=== PATIENT | female | born 1940 | race African-American/Black ===

== ENCOUNTER 2023-11-29 15:06 | Inpatient (IN) | payer OTHER, MEDICAID ==
[~2023-11-29] VITALS: Ht 170.2 cm; Wt 105.6 kg
[2023-11-29 16:41] LABS: Basophils # (auto) 0 10 ^3/uL (0-0.2); Basophils % (auto) 0.1 % (0.0-2.0); Eosinophils # (auto) 0 10 ^3/uL (0-0.8); Hematocrit 49.6 % (36.0-46.0); Hemoglobin 16.5 g/dL (12.2-16.2); Lymphocytes # (auto) 1.2 10 ^3/uL (0.4-5.4); Lymphocytes % (auto) 7.6 % (10.0-50.0); Mean Corpuscular Hemoglobin 27.7 pg (28.0-32.0); Mean Corpuscular Hgb Conc. 33.3 g/dL (32.0-36.0); Mean Corpuscular Volume 83.2 fL (80.0-100.0); Monocytes # (auto) 0.9 10 ^3/uL (0-1.3); Monocytes % (auto) 5.6 % (0.0-12.0); Neutrophils # (auto) 14.1 10 ^3/uL (1.6-8.6); Neutrophils % (auto) 86.7 % (37.0-80.0); Nucleated Red Blood Cells % 0.4 %; Red Blood Cells 5.97 10^6/uL (4.0-5.20); Red Cell Distribution Width 14.4 % (11.8-14.3); White Blood Cell 16.3 10^3/uL (4.4-10.8)
[2023-11-29 17:37] LABS: Alanine Aminotransferase 45 U/L (7-40); Albumin 4.3 g/dL (3.2-4.8); Alkaline Phosphatase 101 U/L (46-116); Anion Gap 16 (5-15); Aspartate Aminotransferase 70 U/L (13-40); BUN/Creatinine Ratio 17.9 (10.0-20.0); Blood Urea Nitrogen 69 mg/dL (9-23); Calcium 10.1 mg/dL (8.7-10.4); Carbon Dioxide 19 mmol/L (20-30); Chloride 98 mmol/L (98-107); Glucose 171 mg/dL (74-106); Lipase 35 U/L (12-53); Potassium 4.5 mmol/L (3.5-5.1); Sodium 133 mmol/L (136-145)
[2023-11-29 17:38] LABS: Bilirubin, Total 0.6 mg/dL (0.2-1.0); Total Protein 7.3 g/dL (5.7-8.2)
[2023-11-29] MEDS: ALBUMIN 25% 100 ML IV ONE (19:58)
[2023-11-29] MEDS: SODIUM CHLORIDE 0.9% 1,000 ML IV ONE (19:58)
[2023-11-29] MEDS: cefTRIAXone 1GM/50ML D5W 50 ML IV ONE (20:48)
[2023-11-29] MEDS ORDERED: DOCUSATE SOD 100 MG CAP PO PRN (22:45)
[2023-11-29] MEDS ORDERED: IBUPROFEN 400 MG TAB PO PRN (22:45)
[2023-11-29] MEDS ORDERED: HYDROcodone-ACET 5/325MG TAB PO PRN (22:45)
[2023-11-29] MEDS: ASPirin 81 mg TAB PO ONE (22:49)
[2023-11-29] MEDS: SODIUM CHLORIDE 0.9% 1,000 ML IV SCH (23:11)
[2023-11-29] MEDS ORDERED: NITROGLYCERIN 0.4 MG SL TAB SL PRN (23:45)
[2023-11-29] MEDS ORDERED: MORPHINE SULFATE INJ 2 MG/ml SYRG IV PRN (23:45)
[2023-11-30] MEDS: ACCU-CHEK COMFORT CURVE STRIP VI SCH (00:39)
[2023-11-30] MEDS: InsuLIN REG 1unit/0.01ml Soln (100units/ml) SC SCH (00:56)
[2023-11-30 06:11] LABS: Basophils # (auto) 0 10 ^3/uL (0-0.2); Basophils % (auto) 0.3 % (0.0-2.0); Eosinophils # (auto) 0 10 ^3/uL (0-0.8); Eosinophils % (auto) 0.2 % (0.0-7.0); Hematocrit 42.5 % (36.0-46.0); Hemoglobin 14.2 g/dL (12.2-16.2); Lymphocytes # (auto) 1.3 10 ^3/uL (0.4-5.4); Lymphocytes % (auto) 11.3 % (10.0-50.0); Mean Corpuscular Hemoglobin 27.4 pg (28.0-32.0); Mean Corpuscular Hgb Conc. 33.4 g/dL (32.0-36.0); Monocytes # (auto) 0.9 10 ^3/uL (0-1.3); Monocytes % (auto) 7.5 % (0.0-12.0); Neutrophils # (auto) 9.4 10 ^3/uL (1.6-8.6); Neutrophils % (auto) 80.7 % (37.0-80.0); Nucleated Red Blood Cells % 0.2 %; Red Blood Cells 5.18 10^6/uL (4.0-5.20); Red Cell Distribution Width 14.3 % (11.8-14.3); White Blood Cell 11.7 10^3/uL (4.4-10.8)
[2023-11-30 06:16] LABS: Alanine Aminotransferase 42 U/L (7-40); Alkaline Phosphatase 83 U/L (46-116); Anion Gap 9 (5-15); Aspartate Aminotransferase 75 U/L (13-40); BUN/Creatinine Ratio 28.9 (10.0-20.0); Calcium 9.7 mg/dL (8.7-10.4); Carbon Dioxide 27 mmol/L (20-30); Chloride 102 mmol/L (98-107); Glucose 90 mg/dL (74-106); Potassium 4.5 mmol/L (3.5-5.1); Sodium 138 mmol/L (136-145)
[2023-11-30 06:17] LABS: Albumin 4.1 g/dL (3.2-4.8); Bilirubin, Total 0.7 mg/dL (0.2-1.0); Total Protein 6.2 g/dL (5.7-8.2)
[2023-11-30 06:27] LABS: Blood Urea Nitrogen 86 mg/dL (9-23)
[2023-11-30 07:30] VITALS: PULSE 93; RESP 18; O2SAT 95
[2023-11-30 09:41] LABS: Urine Bacteria FEW /hpf (None Seen); Urine Blood Negative /uL (Negative); Urine Clarity Clear (Clear); Urine Color Light-Yellow (Yellow); Urine Hyaline Cast MOD /lpf (0 - 2); Urine Protein, UAD Negative (Negative); Urine Specific Gravity 1.012 (1.001-1.035); Urine Urobilinogen Normal (Negative); Urine WBC 1 /hpf (0 - 5)
[2023-11-30] MEDS: ASPirin 81 mg TAB PO SCH (10:32)
[2023-11-30] MEDS: FAMOTIDINE (10MG/ML) 2ML VL IV SCH (10:34)
[2023-11-30 19:56] VITALS: PULSE 106; RESP 14; O2SAT 97
[2023-11-30] MEDS: cefTRIAXone 1GM/50ML D5W 50 ML IV SCH (20:28)
[2023-12-01] MEDS: InsuLIN REG 1unit/0.01ml Soln (100units/ml) SC SCH ×2 (01:18→17:17)
[2023-12-01] MEDS ORDERED: InsuLIN REG 1unit/0.01ml Soln (100units/ml) SC SCH (04:00)
[2023-12-01 06:17] LABS: Basophils # (auto) 0 10 ^3/uL (0-0.2); Basophils % (auto) 0.5 % (0.0-2.0); Eosinophils # (auto) 0.1 10 ^3/uL (0-0.8); Eosinophils % (auto) 0.7 % (0.0-7.0); Hematocrit 43.6 % (36.0-46.0); Hemoglobin 14.6 g/dL (12.2-16.2); Lymphocytes # (auto) 1.1 10 ^3/uL (0.4-5.4); Lymphocytes % (auto) 10.1 % (10.0-50.0); Mean Corpuscular Hemoglobin 28.1 pg (28.0-32.0); Mean Corpuscular Hgb Conc. 33.6 g/dL (32.0-36.0); Mean Corpuscular Volume 83.6 fL (80.0-100.0); Monocytes # (auto) 1.2 10 ^3/uL (0-1.3); Monocytes % (auto) 11.6 % (0.0-12.0); Neutrophils # (auto) 8.1 10 ^3/uL (1.6-8.6); Neutrophils % (auto) 77.1 % (37.0-80.0); Nucleated Red Blood Cells % 0.1 %; Red Blood Cells 5.22 10^6/uL (4.0-5.20); Red Cell Distribution Width 14.2 % (11.8-14.3); White Blood Cell 10.5 10^3/uL (4.4-10.8)
[2023-12-01 06:37] LABS: Alanine Aminotransferase 46 U/L (7-40); Albumin 4.2 g/dL (3.2-4.8); Alkaline Phosphatase 86 U/L (46-116); Anion Gap 8 (5-15); Aspartate Aminotransferase 79 U/L (13-40); BUN/Creatinine Ratio 33.9 (10.0-20.0); Calcium 9.9 mg/dL (8.5-10.1); Carbon Dioxide 26 mmol/L (20-30); Chloride 108 mmol/L (98-107); Glucose 59 mg/dL (74-106); Potassium 4.2 mmol/L (3.5-5.1); Sodium 142 mmol/L (136-145)
[2023-12-01 06:38] LABS: Bilirubin, Total 0.4 mg/dL (0.2-1.0); Total Protein 6.6 g/dL (5.7-8.2)
[2023-12-01 06:40] LABS: Blood Urea Nitrogen 62 mg/dL (9-23)
[2023-12-01 07:30] VITALS: PULSE 91; RESP 16; O2SAT 99
[2023-12-01] MEDS: DEXTROSE (50%) 50ML SYRG IV PRN (08:35)
[2023-12-01] MEDS: SODIUM CHLORIDE 0.9% 1,000 ML IV ONE (15:00)
[2023-12-01] MEDS: ACCU-CHEK COMFORT CURVE STRIP VI SCH (17:08)
[2023-12-01 19:50] VITALS: PULSE 82; RESP 15; O2SAT 94
[2023-12-01 23:36] VITALS: BP 111/54; PULSE 89; RESP 18; TEMP 97.6; O2SAT 100
[2023-12-02] VITALS (8 sets, daily range): BP systolic 99–112; BP diastolic 51–60; PULSE 84–99; RESP 16–18; TEMP 97.6–98.6; O2SAT 96–100
[2023-12-02 05:54] LABS: Anion Gap 6 (5-15); Carbon Dioxide 26 mmol/L (20-30); Chloride 113 mmol/L (98-107); Potassium 4.5 mmol/L (3.5-5.1); Sodium 145 mmol/L (136-145)
[2023-12-02 05:55] LABS: Calcium 9.3 mg/dL (8.7-10.4)
[2023-12-02 06:00] LABS: BUN/Creatinine Ratio 24.2 (10.0-20.0); Glucose 182 mg/dL (74-106)
[2023-12-02 06:17] LABS: Blood Urea Nitrogen 31 mg/dL (9-23)
[2023-12-03] VITALS (7 sets, daily range): BP systolic 92–102; BP diastolic 50–60; PULSE 83–96; RESP 16–60; TEMP 97.7–98.5; O2SAT 94–100
[2023-12-03] MEDS ORDERED: VANCOMYCIN PER PHARMACY 0 MG IV SCH (09:30)
[2023-12-03 11:01] LABS: INR 1.08 (0.9-1.15); Partial Thromboplastin Time 23.5 SEC (24.5-34.5); Prothrombin Time 11.4 sec (9.3-11.8)
[2023-12-03] MEDS: LIDOCAINE 1% (LOCAL ANESTH.) PF 5ml SDV ID ONE (13:02)
[2023-12-03] MEDS: VANCOMYCIN 1GM/200ML 200 ML IV ONE (15:18)
[2023-12-03] MEDS: SODIUM CHLOR 0.9% PF (SALINE LOCK) 10ML VIAL/SYR IV SCH (20:53)
[2023-12-04 05:00] VITALS: BP 93/49; PULSE 104; RESP 16; TEMP 98.4; O2SAT 98
[2023-12-04 07:10] LABS: Basophils # (auto) 0 10 ^3/uL (0-0.2); Basophils % (auto) 0.3 % (0.0-2.0); Eosinophils # (auto) 0.3 10 ^3/uL (0-0.8); Eosinophils % (auto) 2.7 % (0.0-7.0); Hematocrit 32.9 % (36.0-46.0); Hemoglobin 10.9 g/dL (12.2-16.2); Lymphocytes # (auto) 1.7 10 ^3/uL (0.4-5.4); Lymphocytes % (auto) 18.3 % (10.0-50.0); Mean Corpuscular Hemoglobin 27.9 pg (28.0-32.0); Mean Corpuscular Hgb Conc. 33.1 g/dL (32.0-36.0); Mean Corpuscular Volume 84.2 fL (80.0-100.0); Monocytes # (auto) 0.8 10 ^3/uL (0-1.3); Monocytes % (auto) 8.7 % (0.0-12.0); Neutrophils # (auto) 6.7 10 ^3/uL (1.6-8.6); Red Blood Cells 3.91 10^6/uL (4.0-5.20); Red Cell Distribution Width 14.1 % (11.8-14.3); White Blood Cell 9.5 10^3/uL (4.4-10.8)
[2023-12-04 08:45] VITALS: BP 96/52; PULSE 112; RESP 16; TEMP 97.9; O2SAT 96
[2023-12-04 13:00] VITALS: BP 99/60; PULSE 102; RESP 16; TEMP 98.2; O2SAT 97
[2023-12-04] MEDS: POLYETHYLENE GLYCOL 17 GM PWDR PO ONE (14:23)
[2023-12-04 17:00] VITALS: BP 94/52; PULSE 111; RESP 16; TEMP 98.5; O2SAT 98
[2023-12-04] MEDS: VANCOMYCIN 750mg/150ml 150 ML IV SCH (17:35)
[2023-12-04 20:00] VITALS: BP 100/60; PULSE 102; RESP 16; RESP 18; TEMP 98.7
[2023-12-04 21:00] VITALS: BP 100/60; PULSE 102; RESP 16; TEMP 98.7; O2SAT 97
[2023-12-04] MEDS: LACTULOSE 20Gm/30ML SOLN PO SCH (21:09)
[2023-12-05] VITALS (9 sets, daily range): BP systolic 77–113; BP diastolic 42–82; PULSE 89–110; RESP 15–20; TEMP 97.7–99.1; O2SAT 93–100
[2023-12-05 07:22] LABS: Basophils # (auto) 0 10 ^3/uL (0-0.2); Basophils % (auto) 0.5 % (0.0-2.0); Eosinophils # (auto) 0.3 10 ^3/uL (0-0.8); Eosinophils % (auto) 3.2 % (0.0-7.0); Hematocrit 29.9 % (36.0-46.0); Hemoglobin 9.7 g/dL (12.2-16.2); Lymphocytes # (auto) 1.8 10 ^3/uL (0.4-5.4); Lymphocytes % (auto) 18.9 % (10.0-50.0); Mean Corpuscular Hemoglobin 27.1 pg (28.0-32.0); Mean Corpuscular Hgb Conc. 32.6 g/dL (32.0-36.0); Mean Corpuscular Volume 83.3 fL (80.0-100.0); Monocytes # (auto) 0.9 10 ^3/uL (0-1.3); Monocytes % (auto) 9.6 % (0.0-12.0); Neutrophils # (auto) 6.4 10 ^3/uL (1.6-8.6); Neutrophils % (auto) 67.8 % (37.0-80.0); Nucleated Red Blood Cells % 0.1 %; Red Blood Cells 3.59 10^6/uL (4.0-5.20); Red Cell Distribution Width 14.1 % (11.8-14.3); White Blood Cell 9.4 10^3/uL (4.4-10.8)
[2023-12-05 07:37] LABS: Anion Gap 8 (5-15); Carbon Dioxide 22 mmol/L (20-30); Chloride 109 mmol/L (98-107); Potassium 4.2 mmol/L (3.5-5.1); Sodium 139 mmol/L (136-145)
[2023-12-05 07:38] LABS: Calcium 8.8 mg/dL (8.7-10.4)
[2023-12-05 07:43] LABS: Glucose 178 mg/dL (74-106)
[2023-12-05 07:44] LABS: BUN/Creatinine Ratio 21.7 (10.0-20.0); Blood Urea Nitrogen 23 mg/dL (9-23)
[2023-12-05] MEDS: LACTULOSE 20Gm/30ML SOLN PO ONE (11:50)
[2023-12-05] MEDS: VANCOMYCIN 1GM/200ML 200 ML IV SCH (17:16)
[2023-12-06] VITALS (38 sets, daily range): BP systolic 68–116; BP diastolic 22–58; PULSE 95–140; RESP 12–29; TEMP 97.3–98.6; O2SAT 86–100
[2023-12-06 09:24] LABS: Hematocrit 21.9 % (36.0-46.0); Hemoglobin 7.1 g/dL (12.2-16.2); Mean Corpuscular Hemoglobin 27.1 pg (28.0-32.0); Mean Corpuscular Hgb Conc. 32.4 g/dL (32.0-36.0); Mean Corpuscular Volume 83.6 fL (80.0-100.0); Red Blood Cells 2.62 10^6/uL (4.0-5.20); Red Cell Distribution Width 14.2 % (11.8-14.3); White Blood Cell 22.7 10^3/uL (4.4-10.8)
[2023-12-06 09:30] LABS: Band Neutrophils % (manual) 0; Basophils % (manual) 0 (0.0-2.0); Blast Cells 0; Eosinophils % (manual) 0 (0-7); Metamyelocytes % 0; Myelocytes % 0; Promyelocytes % 0; Reactive Lymphocytes 0
[2023-12-06 09:43] LABS: Alanine Aminotransferase 55 U/L (7-40); Alkaline Phosphatase 52 U/L (46-116); Anion Gap 6 (5-15); Aspartate Aminotransferase 49 U/L (13-40); Bilirubin, Total 0.3 mg/dL (0.2-1.0); Blood Urea Nitrogen 30 mg/dL (9-23); Calcium 8.1 mg/dL (8.5-10.1); Carbon Dioxide 23 mmol/L (20-30); Chloride 112 mmol/L (98-107); Glucose 230 mg/dL (74-106); Sodium 141 mmol/L (136-145)
[2023-12-06 09:44] LABS: Total Protein 4.5 g/dL (5.7-8.2)
[2023-12-06 10:22] LABS: Hematocrit 27.4 % (36.0-46.0); Hemoglobin 8.3 g/dL (12.2-16.2)
[2023-12-06] MEDS: SODIUM CHLORIDE 0.9% 1,000 ML IV SCH (11:00)
[2023-12-06] MEDS: SODIUM CHLORIDE 0.9% 1,850 ML IV ONE (11:00)
[2023-12-06 12:16] LABS: Hematocrit 23.7 % (36.0-46.0); Hemoglobin 7.3 g/dL (12.2-16.2)
[2023-12-06 12:46] LABS: Lymphocytes % (manual) 6 (10.0-50.0); Monocytes % (manual) 6 (0-12); Platelet Estimate Adequate
[2023-12-06] MEDS: NOREPINEPHRINE 8 MG/250ML KIT 250 ML IV ONE (14:07)
[2023-12-06] MEDS: NOREPINEPHRINE 8 MG/250ML KIT 250 ML IV SCH (18:15)
[2023-12-06 21:12] LABS: Hemoglobin 7.9 g/dL (12.2-16.2)
[2023-12-06 21:14] LABS: Hematocrit 24.5 % (36.0-46.0)
[2023-12-06] MEDS: PHENYLEPHRINE IV 250 ML IV SCH (23:15)
[2023-12-06] MEDS: PHENYLEPHRINE IV 250 ML IV ONE (23:15)
[2023-12-07] VITALS (105 sets, daily range): BP systolic 83–267; BP diastolic 20–192; PULSE 60–141; RESP 12–31; TEMP 97–99.6; O2SAT 84–100
[2023-12-07 00:44] LABS: Hematocrit 20.2 % (36.0-46.0)
[2023-12-07 00:58] LABS: Hemoglobin 6.5 g/dL (12.2-16.2)
[2023-12-07 09:53] LABS: Hematocrit 33.9 % (36.0-46.0); Hemoglobin 10.6 g/dL (12.2-16.2); Mean Corpuscular Hemoglobin 28.8 pg (28.0-32.0); Mean Corpuscular Hgb Conc. 31.2 g/dL (32.0-36.0); Mean Corpuscular Volume 92.1 fL (80.0-100.0); Red Blood Cells 3.68 10^6/uL (4.0-5.20); Red Cell Distribution Width 14.9 % (11.8-14.3); White Blood Cell 27.7 10^3/uL (4.4-10.8)
[2023-12-07 09:56] LABS: Band Neutrophils % (manual) 0; Basophils % (manual) 0 (0.0-2.0); Blast Cells 0; Eosinophils % (manual) 0 (0-7); Metamyelocytes % 0; Myelocytes % 0; Promyelocytes % 0; Reactive Lymphocytes 0
[2023-12-07 10:44] LABS: Chloride 115 mmol/L (98-107); Potassium 4.4 mmol/L (3.5-5.1); Sodium 140 mmol/L (136-145)
[2023-12-07 10:45] LABS: Anion Gap 9 (5-15); Calcium 7.7 mg/dL (8.5-10.1); Carbon Dioxide 16 mmol/L (20-30)
[2023-12-07 10:50] LABS: BUN/Creatinine Ratio 16.5 (10.0-20.0); Blood Urea Nitrogen 19 mg/dL (9-23); Glucose 297 mg/dL (74-106); Magnesium 1.6 mg/dL (1.6-2.6)
[2023-12-07 12:04] LABS: Lymphocytes % (manual) 8 (10.0-50.0); Monocytes % (manual) 2 (0-12); Platelet Estimate Decreased
[2023-12-07 18:58] LABS: Hematocrit 28.5 % (36.0-46.0); Hemoglobin 9.6 g/dL (12.2-16.2)
[2023-12-07 22:06] LABS: Hematocrit 27.2 % (36.0-46.0); Hemoglobin 9.1 g/dL (12.2-16.2)
[2023-12-08] VITALS (91 sets, daily range): BP systolic 83–162; BP diastolic 30–71; PULSE 60–88; RESP 10–26; TEMP 97.3–98; O2SAT 84–100
[2023-12-08 06:05] LABS: Hematocrit 29.5 % (36.0-46.0); Hemoglobin 9.1 g/dL (12.2-16.2)
[2023-12-08 06:55] LABS: Alanine Aminotransferase 32 U/L (7-40); Albumin 2.7 g/dL (3.2-4.8); Alkaline Phosphatase 50 U/L (46-116); Anion Gap 11 (5-15); Aspartate Aminotransferase 22 U/L (13-40); BUN/Creatinine Ratio 19.4 (10.0-20.0); Bilirubin, Total 0.3 mg/dL (0.2-1.0); Blood Urea Nitrogen 18 mg/dL (9-23); Calcium 7.9 mg/dL (8.7-10.4); Carbon Dioxide 16 mmol/L (20-30); Chloride 117 mmol/L (98-107); Glucose 209 mg/dL (74-106); Sodium 144 mmol/L (136-145); Total Protein 4.3 g/dL (5.7-8.2)
[2023-12-08] MEDS: VANCOMYCIN 1GM/200ML 200 ML IV ONE (10:27)
[2023-12-08 14:07] LABS: Hematocrit 26.4 % (36.0-46.0); Hemoglobin 8.7 g/dL (12.2-16.2)
[2023-12-08 20:07] LABS: Hemoglobin 8.3 g/dL (12.2-16.2)
[2023-12-08 20:08] LABS: Hematocrit 26.1 % (36.0-46.0)
[2023-12-08] MEDS: GOLYTELY 4L KIT PO ONE (20:47)
[2023-12-09] VITALS (90 sets, daily range): BP systolic 90–209; BP diastolic 15–74; PULSE 58–88; RESP 13–27; TEMP 97.7–98.7; O2SAT 93–100
[2023-12-09 02:05] LABS: Hemoglobin 7.8 g/dL (12.2-16.2)
[2023-12-09 02:07] LABS: Hematocrit 23.7 % (36.0-46.0)
[2023-12-09 05:30] LABS: Basophils # (auto) 0.1 10 ^3/uL (0-0.2); Lymphocytes % (auto) 11.7 % (10.0-50.0); Mean Corpuscular Hgb Conc. 32.8 g/dL (32.0-36.0); Monocytes # (auto) 1.8 10 ^3/uL (0-1.3); Monocytes % (auto) 10.5 % (0.0-12.0); Red Blood Cells 2.74 10^6/uL (4.0-5.20)
[2023-12-09 05:32] LABS: Basophils % (auto) 0.4 % (0.0-2.0); Eosinophils # (auto) 0.4 10 ^3/uL (0-0.8); Eosinophils % (auto) 2.5 % (0.0-7.0); Hematocrit 24.5 % (36.0-46.0); Mean Corpuscular Hemoglobin 29.3 pg (28.0-32.0); Mean Corpuscular Volume 89.2 fL (80.0-100.0); Neutrophils # (auto) 12.6 10 ^3/uL (1.6-8.6); Neutrophils % (auto) 74.9 % (37.0-80.0); Nucleated Red Blood Cells % 0.1 %; Red Cell Distribution Width 15.4 % (11.8-14.3); White Blood Cell 16.8 10^3/uL (4.4-10.8)
[2023-12-09 05:53] LABS: Chloride 117 mmol/L (98-107); Potassium 3.7 mmol/L (3.5-5.1); Sodium 144 mmol/L (136-145)
[2023-12-09 05:54] LABS: Anion Gap 8 (5-15); Carbon Dioxide 19 mmol/L (20-30)
[2023-12-09 05:55] LABS: Calcium 8.1 mg/dL (8.5-10.1)
[2023-12-09 05:59] LABS: BUN/Creatinine Ratio 12.5 (10.0-20.0); Blood Urea Nitrogen 10 mg/dL (9-23); Glucose 178 mg/dL (74-106)
[2023-12-09 11:08] LABS: Hemoglobin 7.8 g/dL (12.2-16.2)
[2023-12-09 11:21] LABS: INR 1.07 (0.9-1.15); Partial Thromboplastin Time 27.2 SEC (24.5-34.5); Prothrombin Time 11.3 sec (9.3-11.8)
[2023-12-09] MEDS: VANCOMYCIN 1GM/200ML 200 ML IV SCH (16:25)
[2023-12-09] MEDS: PHENYLEPHRINE INJ 80 MG in SODIUM CHL 0.9% 242 ML IV SCH (16:45)
[2023-12-10] VITALS (98 sets, daily range): BP systolic 86–138; BP diastolic 28–71; PULSE 60–118; RESP 11–25; TEMP 97.4–98; O2SAT 96–100
[2023-12-10 05:23] LABS: Eosinophils # (auto) 0.3 10 ^3/uL (0-0.8)
[2023-12-10 05:25] LABS: Basophils # (auto) 0 10 ^3/uL (0-0.2); Basophils % (auto) 0.4 % (0.0-2.0); Eosinophils % (auto) 2.8 % (0.0-7.0); Hematocrit 23.7 % (36.0-46.0); Hemoglobin 8.3 g/dL (12.2-16.2); Lymphocytes # (auto) 1.2 10 ^3/uL (0.4-5.4); Lymphocytes % (auto) 10.7 % (10.0-50.0); Mean Corpuscular Hemoglobin 30.7 pg (28.0-32.0); Mean Corpuscular Hgb Conc. 34.8 g/dL (32.0-36.0); Mean Corpuscular Volume 88.3 fL (80.0-100.0); Monocytes % (auto) 9.2 % (0.0-12.0); Neutrophils # (auto) 8.7 10 ^3/uL (1.6-8.6); Neutrophils % (auto) 76.9 % (37.0-80.0); Nucleated Red Blood Cells % 0.1 %; Red Blood Cells 2.69 10^6/uL (4.0-5.20); Red Cell Distribution Width 15.1 % (11.8-14.3); White Blood Cell 11.4 10^3/uL (4.4-10.8)
[2023-12-10 05:39] LABS: Alanine Aminotransferase 22 U/L (7-40); Albumin 2.9 g/dL (3.2-4.8); Alkaline Phosphatase 59 U/L (46-116); Anion Gap 8 (5-15); Aspartate Aminotransferase 15 U/L (13-40); BUN/Creatinine Ratio 8.8 (10.0-20.0); Bilirubin, Total 0.4 mg/dL (0.2-1.0); Blood Urea Nitrogen 6 mg/dL (9-23); Calcium 8.2 mg/dL (8.5-10.1); Carbon Dioxide 19 mmol/L (20-30); Chloride 118 mmol/L (98-107); Glucose 122 mg/dL (74-106); Potassium 3.6 mmol/L (3.5-5.1); Sodium 145 mmol/L (136-145)
[2023-12-10 05:40] LABS: Total Protein 4.4 g/dL (5.7-8.2)
[2023-12-10] MEDS: HYDROCORTISONE ACET 25 MG RECTAL SUPP PR ONE (16:16)
[2023-12-10] MEDS: ONDANSETRON HCL 4 MG/2 ML VIAL IV PRN (18:50)
[2023-12-11] VITALS (53 sets, daily range): BP systolic 102–139; BP diastolic 28–77; PULSE 79–139; RESP 11–22; TEMP 97.6–98.4; O2SAT 96–100
[2023-12-11] MEDS: dilTIAZem 25 MG/5 ML VIAL IV ONE ×2 (04:53→05:11)
[2023-12-11 05:13] LABS: Basophils % (auto) 0.5 % (0.0-2.0); Hemoglobin 8.4 g/dL (12.2-16.2); Monocytes # (auto) 0.8 10 ^3/uL (0-1.3); Monocytes % (auto) 8.2 % (0.0-12.0)
[2023-12-11 05:15] LABS: Basophils # (auto) 0 10 ^3/uL (0-0.2); Eosinophils # (auto) 0.2 10 ^3/uL (0-0.8); Eosinophils % (auto) 2.3 % (0.0-7.0); Hematocrit 24.9 % (36.0-46.0); Lymphocytes % (auto) 10.1 % (10.0-50.0); Mean Corpuscular Hemoglobin 30.3 pg (28.0-32.0); Mean Corpuscular Hgb Conc. 33.8 g/dL (32.0-36.0); Mean Corpuscular Volume 89.5 fL (80.0-100.0); Neutrophils # (auto) 7.5 10 ^3/uL (1.6-8.6); Neutrophils % (auto) 78.9 % (37.0-80.0); Nucleated Red Blood Cells % 0.1 %; Red Blood Cells 2.78 10^6/uL (4.0-5.20); White Blood Cell 9.5 10^3/uL (4.4-10.8)
[2023-12-11 05:31] LABS: Alanine Aminotransferase 22 U/L (7-40); Alkaline Phosphatase 63 U/L (46-116)
[2023-12-11 05:32] LABS: Albumin 2.9 g/dL (3.2-4.8); Anion Gap 9 (5-15); Aspartate Aminotransferase 13 U/L (13-40); BUN/Creatinine Ratio 8.5 (10.0-20.0); Bilirubin, Total 0.3 mg/dL (0.2-1.0); Blood Urea Nitrogen 7 mg/dL (9-23); Calcium 8.6 mg/dL (8.7-10.4); Carbon Dioxide 20 mmol/L (20-30); Chloride 116 mmol/L (98-107); Glucose 157 mg/dL (74-106); Magnesium 1.7 mg/dL (1.6-2.6); Potassium 3.9 mmol/L (3.5-5.1); Sodium 145 mmol/L (136-145); Total Protein 4.6 g/dL (5.7-8.2)
[2023-12-12] VITALS (8 sets, daily range): BP systolic 99–115; BP diastolic 50–68; PULSE 91–107; RESP 16–20; TEMP 97.5–98.1; O2SAT 93–100
[2023-12-12 07:45] LABS: Basophils # (auto) 0 10 ^3/uL (0-0.2); Basophils % (auto) 0.5 % (0.0-2.0); Eosinophils # (auto) 0.1 10 ^3/uL (0-0.8); Eosinophils % (auto) 1.3 % (0.0-7.0); Hematocrit 23.5 % (36.0-46.0); Hemoglobin 7.8 g/dL (12.2-16.2); Lymphocytes % (auto) 11.1 % (10.0-50.0); Mean Corpuscular Hemoglobin 29.8 pg (28.0-32.0); Mean Corpuscular Volume 90.5 fL (80.0-100.0); Monocytes # (auto) 0.8 10 ^3/uL (0-1.3); Monocytes % (auto) 8.7 % (0.0-12.0); Neutrophils # (auto) 7.4 10 ^3/uL (1.6-8.6); Neutrophils % (auto) 78.4 % (37.0-80.0); Nucleated Red Blood Cells % 0.4 %; Red Cell Distribution Width 17.3 % (11.8-14.3); White Blood Cell 9.5 10^3/uL (4.4-10.8)
[2023-12-12] MEDS: FERROUS SULFATE 325mg EC TAB PO SCH (18:02)
[2023-12-13 05:00] VITALS: BP 113/60; PULSE 95; RESP 20; TEMP 98.3; O2SAT 98
[2023-12-13 06:50] LABS: Basophils # (auto) 0 10 ^3/uL (0-0.2); Basophils % (auto) 0.5 % (0.0-2.0); Eosinophils # (auto) 0.2 10 ^3/uL (0-0.8); Monocytes # (auto) 0.8 10 ^3/uL (0-1.3)
[2023-12-13 06:53] LABS: Eosinophils % (auto) 2.2 % (0.0-7.0); Hematocrit 23.2 % (36.0-46.0); Hemoglobin 7.8 g/dL (12.2-16.2); Lymphocytes % (auto) 10.9 % (10.0-50.0); Mean Corpuscular Hemoglobin 30.1 pg (28.0-32.0); Mean Corpuscular Hgb Conc. 33.4 g/dL (32.0-36.0); Mean Corpuscular Volume 89.9 fL (80.0-100.0); Monocytes % (auto) 8.2 % (0.0-12.0); Neutrophils # (auto) 7.2 10 ^3/uL (1.6-8.6); Neutrophils % (auto) 78.2 % (37.0-80.0); Nucleated Red Blood Cells % 0.3 %; Red Blood Cells 2.58 10^6/uL (4.0-5.20); Red Cell Distribution Width 17.5 % (11.8-14.3); White Blood Cell 9.2 10^3/uL (4.4-10.8)
[2023-12-13 08:00] VITALS: PULSE 98; RESP 17; O2SAT 96
[2023-12-13 08:55] VITALS: BP 119/56; PULSE 98; RESP 17; TEMP 98.4; O2SAT 96
[2023-12-13 12:55] VITALS: BP 116/64; PULSE 91; RESP 17; TEMP 98.2; O2SAT 94
[2023-12-13 16:55] VITALS: BP 120/55; PULSE 108; RESP 17; TEMP 98; O2SAT 96
[2023-12-13 17:06] VITALS: BP 120/55; PULSE 108; RESP 17; TEMP 97.8; O2SAT 96
[2023-12-13] MEDS: VANCOMYCIN 1GM/200ML 200 ML IV SCH (17:24)
== END 2023-12-13 19:54 | DRG 871 ==
LOC: ER 15:06 → EDBD 15:06 → TELE 23:35 → EAST 12-01 23:40 → DOU IN ICU 12-06 17:47 → ICU CENTRL 12-06 17:50 → CENTRAL 12-11 17:12
PROVIDERS: ADMIT Family Medicine; ATTEND Family Medicine
PROC: 02HV33Z Insertion of Infusion Device into Superior Vena Cava, Percutaneous Approach (ICD-10-PCS; principal; 2023-12-03)
PROC: B548ZZA Ultrasonography of Superior Vena Cava, Guidance (ICD-10-PCS; 2023-12-03)
PROC: 30233N1 Transfusion of Nonautologous Red Blood Cells into Peripheral Vein, Percutaneous Approach (ICD-10-PCS; 2023-12-06)
DX: A41.9 Sepsis, unspecified organism (principal); E43 Unspecified severe protein-calorie malnutrition; I21.A1 Myocardial infarction type 2; G92.8 Other toxic encephalopathy; R65.21 Severe sepsis with septic shock; E87.1 Hypo-osmolality and hyponatremia; N17.9 Acute kidney failure, unspecified; D62 Acute posthemorrhagic anemia; N39.0 Urinary tract infection, site not specified; K92.1 Melena; E11.22 Type 2 diabetes mellitus with diabetic chronic kidney disease; E11.649 Type 2 diabetes mellitus with hypoglycemia without coma; E11.65 Type 2 diabetes mellitus with hyperglycemia; E86.0 Dehydration; E86.1 Hypovolemia; G30.9 Alzheimer's disease, unspecified; I12.9 Hypertensive chronic kidney disease with stage 1 through stage 4 chronic kidney disease, or unspecified chronic kidney disease; F02.C0 Dementia in other diseases classified elsewhere, severe, without behavioral disturbance, psychotic disturbance, mood disturbance, and anxiety; N18.9 Chronic kidney disease, unspecified; N32.9 Bladder disorder, unspecified; R29.6 Repeated falls; T38.3X5A Adverse effect of insulin and oral hypoglycemic [antidiabetic] drugs, initial encounter; R74.01 Elevation of levels of liver transaminase levels; K59.09 Other constipation; Z68.36 Body mass index [BMI] 36.0-36.9, adult; Z79.4 Long term (current) use of insulin; Y92.89 Other specified places as the place of occurrence of the external cause
CPT/HCPCS: 36415; 36569; 71045; 74176; 80048; 80053; 80202; 81001; 82270; 82565; 82962; 83036; 83605; 83690; 83735; 83880; 84484; 85007; 85014; 85018; 85025; 85027; 85610; 85730; 86850; 86900; 86901; 86920; 87040; 87077; 87081; 87086; 87186; 93005; 93306; 96365; 97110; 97116; 97163; 97530; G0378; J1815; J2405; J3490; P9047